=== PATIENT | female | born 1985 | race African-American/Black ===

== ENCOUNTER 2017-11-28 18:19 | Emergency (ER) | payer OTHER ==
[~2017-11-28] VITALS: Ht 154.9 cm; Wt 68.0 kg
[2017-11-28] MEDS ORDERED: IBUPROFEN 800 MG TABLET PO ONE (19:00)
[2017-11-28 21:30] VITALS: BP 112/74
[2017-11-28 21:31] LABS: INFLUENZA TYPE A NEGATIVE FOR TYPE A (NEGATIVE); INFLUENZA TYPE B NEGATIVE FOR TYPE B (NEGATIVE)
== END 2017-11-28 21:31 | disposition home or self-care (01) ==
LOC: EMS 18:23
DX: J02.9 Acute pharyngitis, unspecified (principal)
CPT/HCPCS: 87804; 99284

== ENCOUNTER 2019-01-17 16:37 | Emergency (ER) | payer OTHER ==
[~2019-01-17] VITALS: Ht 154.9 cm; Wt 65.9 kg
[2019-01-17] MEDS ORDERED: AMOX TR/POT CLAV 875 MG/125 MG TABLET PO ONE (18:30)
[2019-01-17 18:44] VITALS: BP 104/70
[2019-01-17] MEDS ORDERED: ACETAMINOPHEN 325 MG TABLET PO ONE (18:45)
== END 2019-01-17 18:48 | disposition home or self-care (01) ==
LOC: EMS 16:38
DX: O26.893 Other specified pregnancy related conditions, third trimester (principal); J01.90 Acute sinusitis, unspecified; K08.89 Other specified disorders of teeth and supporting structures; Z3A.32 32 weeks gestation of pregnancy

== ENCOUNTER 2019-03-01 10:15 | Observation (INO) | payer MEDICAID, OTHER ==
[~2019-03-01] VITALS: Ht 154.9 cm; Wt 68.5 kg
[2019-03-01 11:08] VITALS: BP 110/65
[2019-03-01] MEDS ORDERED: ACYC200L PO (23:39)
[2019-03-01] MEDS ORDERED: FERR-89 PO (23:41)
[2019-03-03] MEDS ORDERED: IBUP-2071 PO (10:19)
[2019-03-03] MEDS ORDERED: DSS100 PO (10:20)
== END 2019-03-01 11:55 | disposition home or self-care (01) ==
LOC: 4S 10:15
PROVIDERS: ADMIT Obstetrics & Gynecology; ATTEND Obstetrics & Gynecology
DX: O36.5930 Maternal care for other known or suspected poor fetal growth, third trimester, not applicable or unspecified (principal); Z3A.39 39 weeks gestation of pregnancy
CPT/HCPCS: 76805; G0378

== ENCOUNTER 2019-10-01 11:14 | Day surgery (SDC) | payer MEDICAID ==
[~2019-10-01] VITALS: Ht 154.9 cm; Wt 64.1 kg
[~2019-10-01 11:14] MED LIST: RINGERS SOLUTION,LACTATED 1,000 ML IV ONE; SILVER NITRATE APPLICATOR 1 EA STICK TP ONE
[2019-10-01 11:58] LABS: BASOPHILS % (AUTO) 0.6 % (0.0-2.0); EOSINOPHILS % (AUTO) 2.7 % (1.0-6.0); HEMATOCRIT 37.8 % (36-46); HEMOGLOBIN 12.7 g/dL (12.0-16.0); LYMPHOCYTES # (AUTO) 1.2 K/uL (1.0-4.8); LYMPHOCYTES % (AUTO) 29.1 % (22.0-44.0); MEAN CORPUSCULAR HEMOGLOBIN 29.3 pg (26.0-34.0); MEAN CORPUSCULAR HGB CONC 33.6 G/dL (31.0-37.0); MEAN CORPUSCULAR VOLUME 87 fL (80-100); MONOCYTES # (AUTO) 0.3 K/uL (0.1-1.0); MONOCYTES % (AUTO) 6.7 % (2.0-9.0); NEUTROPHILS # (AUTO) 2.6 K/uL (1.8-7.7); NEUTROPHILS % (AUTO) 60.9 % (40.0-70.0); PLATELET COUNT (AUTO) 170 K/uL (150-450); RED BLOOD CELL COUNT(AUTO) 4.34 MIL/uL (4.00-5.20); RED CELL DISTRIBUTION WIDTH 13.2 % (11.5-14.5)
[2019-10-01] MEDS ORDERED: SUCCINYLCHOLINE CHLORIDE 20 MG/ML 10 ML VIAL IVP ONE (12:00)
[2019-10-01] MEDS ORDERED: PROPOFOL 1% 20 ML VIAL IVP ONE (12:00)
[2019-10-01] MEDS ORDERED: ONDANSETRON HCL 4 MG/2 ML VIAL IVP ONE (12:00)
[2019-10-01] MEDS ORDERED: DEXAMETHASONE SOD PHOS 4 MG/ML VIAL IVP ONE (12:00)
[2019-10-01] MEDS ORDERED: FentaNYL CITRATE-PF 100 MCG/2 ML VIAL IVP ONE (12:00)
[2019-10-01] MEDS ORDERED: MIDAZOLAM HCL 2 MG/2 ML VIAL IVP ONE (12:00)
[2019-10-01 12:12] LABS: ANION GAP 10 mmol/L (8-16); CALCIUM, TOTAL 8.9 mg/dL (8.8-10.5); CARBON DIOXIDE 26 mmol/L (22-29); CHLORIDE 106 mmol/L (98-107); CREATININE 0.77 mg/dL (0.60-1.30); GLOMERULAR FILTR. RATE CALC > 60 mL/min (>60); GLUCOSE,RANDOM 70 mg/dL (70-110); POTASSIUM 3.6 mmol/L (3.5-5.1); SODIUM SERUM 142 mmol/L (136-145); UREA NITROGEN, BLOOD 7 mg/dL (7-18)
[2019-10-01 12:16] LABS: ALANINE AMINOTRANSFERASE 13 U/L (12-78); ALBUMIN 3.8 g/dL (3.4-5.0); ALKALINE PHOSPHATASE 103 U/L (46-116); ASPARTATE AMINOTRANSFERASE 14 U/L (15-37); BILIRUBIN,TOTAL 1.2 mg/dL (0.1-1.0)
[2019-10-01] MEDS ORDERED: FERRIC SUBSULFATE SOLUTION 8 ML BOTTLE TP ONE (12:30)
[2019-10-01] MEDS ORDERED: POTASSIUM IODIDE 5%/IODINE 10% SOLUTION 14 ML TP ONE (12:30)
[2019-10-01] MEDS ORDERED: MEPERIDINE-PF 25 MG/ML VIAL IVP PRN (14:30)
[2019-10-01] MEDS ORDERED: HYDROmorphone 2 MG/ML SYRINGE IVP PRN (14:30)
[2019-10-01] MEDS ORDERED: FentaNYL CITRATE-PF 100 MCG/2 ML VIAL IVP PRN (14:30)
== END 2019-10-01 16:00 | disposition home or self-care (01) ==
LOC: SURGERY 11:14
PROVIDERS: ATTEND Obstetrics & Gynecology
DX: N87.1 Moderate cervical dysplasia (principal); Z98.890 Other specified postprocedural states; Z79.899 Other long term (current) drug therapy
CPT/HCPCS: 36415; 57522; 80053; 84703; 85025; J0330; J0690; J1100; J2250; J2405; J2704; J3010; J7120; 88305; 88307; 88341; 88342

== ENCOUNTER 2023-02-14 09:33 | Emergency (ER) | payer MEDICAID, OTHER ==
[~2023-02-14] VITALS: Ht 154.9 cm; Wt 81.8 kg
[2023-02-14 09:47] VITALS: BP 134/86
[2023-02-14 10:29] LABS: APPEARANCE,URINE HAZY (CLEAR); BILIRUBIN,URINE NEGATIVE (NEGATIVE); GLUCOSE, URINE (UA) NEGATIVE (NEGATIVE); KETONES,URINE NEGATIVE (NEGATIVE); LEUKOCYTE ESTERASE ,URINE MODERATE (NEGATIVE); NITRATE,URINE NEGATIVE (NEGATIVE); OCCULT BLOOD,URINE SMALL (NEGATIVE); PH,URINE 6.5 (5.0-8.0); PROTEIN,URINE TRACE mg/dL (NEGATIVE); SPECIFIC GRAVITIY, URINE 1.022 (1.003-1.030); UROBILINOGEN,URINE <=1.0 mg/dL (<=1.0)
[2023-02-14 10:36] LABS: BACTERIA,URINE Moderate /HPF (None Seen); SQUAMOUS EPITHELIAL CELL,UR Many /LPF (None Seen)
[2023-02-14] MEDS ORDERED: CEFP100T8 PO (10:47)
== END 2023-02-14 11:18 | disposition home or self-care (01) ==
LOC: EMS 09:35
DX: N39.0 Urinary tract infection, site not specified (principal); N90.89 Other specified noninflammatory disorders of vulva and perineum
CPT/HCPCS: 81001; 84703; 87086; 87186; 87255; 87491; 87591; 99284; Z7502

== ENCOUNTER 2023-06-05 23:52 | Emergency (ER) | payer OTHER ==
[~2023-06-05] VITALS: Ht 154.9 cm; Wt 77.0 kg
[~2023-06-05 23:52] MED LIST changes: +CEFP100T8 PO; -RINGERS SOLUTION,LACTATED 1,000 ML IV ONE; -SILVER NITRATE APPLICATOR 1 EA STICK TP ONE
[2023-06-05 23:53] VITALS: BP 124/83; PULSE 75; RESP 17; TEMP 98
[2023-06-06] MEDS ORDERED: VALA500T PO (01:04)
== END 2023-06-06 01:37 | disposition home or self-care (01) ==
LOC: EMS 23:55
DX: B00.9 Herpesviral infection, unspecified (principal)
CPT/HCPCS: 99281; Z7502

== ENCOUNTER 2024-09-15 16:24 | Emergency (ER) | payer OTHER ==
[~2024-09-15] VITALS: Ht 154.9 cm; Wt 72.7 kg
[~2024-09-15 16:24] MED LIST changes: +VALA500T PO
[2024-09-15 16:35] VITALS: BP 124/79; PULSE 78; RESP 16; TEMP 98; O2SAT 100
[2024-09-15] MEDS ORDERED: VALA500T42 PO (18:55)
== END 2024-09-15 19:12 | disposition home or self-care (01) ==
LOC: EMS 16:24
DX: B00.9 Herpesviral infection, unspecified (principal); Z76.0 Encounter for issue of repeat prescription; Z79.624 Long term (current) use of inhibitors of nucleotide synthesis
CPT/HCPCS: 99281; Z7502